=== PATIENT | female | born 1945 | race Caucasian/White ===

== ENCOUNTER 2022-05-06 17:15 | Inpatient (IN) | payer OTHER ==
[~2022-05-06] VITALS: Ht 162.6 cm; Wt 73.5 kg
[2022-05-06 17:15] VITALS: BP_SYST 116
--- NOTE | 2022-05-06 17:15 | NUR ---
BROUGHT IN BY [facility], TRIAGED. REPORT GIVEN TO ALEXANDRA
--- NOTE | 2022-05-06 17:25 | NUR ---
PT BIBA FROM HOME C/O LOWER RIGHT LEG/KNEE PAIN. PT REPORTS HER LEGS HAVE BEEN SWOLLEN FOR ABOUT A YEAR. RECENTLY THEY BEGAN TO WEEP AND REDNESS TO RIGHT ANKLE. PT STATES SHE WAS HOSPITALIZED EARLIER THIS YEAR AT [facility] "THEY DIDN'T DO ANYTHING AND I DON'T KNOW WHAT'S WRONG WITH ME, I THINK I HAVE KIDNEY PROBLEMS". STATES SHE HAS BEEN IN A RECLINER CHAIR AT HOME SINCE SHE CAN NO LONGER WALK. PT IS AAOX4, VSS
--- NOTE | 2022-05-06 18:15 | NUR ---
ER DR. KOEHLER EXAMINING PT
--- NOTE | 2022-05-06 18:49 | NUR ---
# 22 gauge angiocath placed to RFA. Use of asceptic technique. Opsite placed over site. Blood return noted. Flushed with 10 cc of normal saline. No evidence of infiltration noted. Patient tolerated well.
--- NOTE | 2022-05-06 18:52 | NUR ---
PT'S AT THE BEDSIDE
--- NOTE | 2022-05-06 18:53 | NUR ---
LAB AT THE BEDSIDE FOR BLOOD DRAW
--- NOTE | 2022-05-06 19:04 | NUR ---
PORTABLE XRAY AT THE BEDSIDE
--- NOTE | 2022-05-06 19:14 | NUR ---
REPORT GIVEN TO JENAE WARD FOR CONTINUING CARE
--- NOTE | 2022-05-06 19:15 | NUR ---
ASSUME CARE OF PT BY ED EMANUEL, REPORT GIVEN BY JETHRO EMANUEL, PT BIBA FOR RIGHT LEG/KNEE PAIN, PT HAS HAD MULTIPLE FALLS DUE TO SWELLING AND PAIN BILAERAL LEGS. PT STATES BILATERAL LOWER LEG SWELLING X 1 YR. LEFT LOWER LEG REDNESS. AT BEDSIDE.
[2022-05-06 19:18] LABS: BASOPHILS # (AUTO) 0.1 K/uL (0.0-0.2); BASOPHILS % (AUTO) 0.9 % (0.0-2.0); EOSINOPHILS # (AUTO) 0.1 K/uL (0.0-0.4); EOSINOPHILS % (AUTO) 0.6 % (0.0-4.0); HEMATOCRIT 24.4 % (36-48); HEMOGLOBIN 7.9 g/dL (12.0-16.0); LYMPHOCYTES # (AUTO) 1.8 K/uL (1.0-5.5); LYMPHOCYTES % (AUTO) 18.8 % (20.5-51.5); MEAN CORPUSCULAR HEMOGLOBIN 22 pg (27-31); MEAN CORPUSCULAR HGB CONC 32 % (32-36); MEAN CORPUSCULAR VOLUME 68 fL (79.0-98.0); MONOCYTES # (AUTO) 1.1 K/uL (0.0-1.0); MONOCYTES % (AUTO) 11.6 % (1.7-9.3); NEUTROPHILS # (AUTO) 6.7 K/uL (1.8-7.7); NEUTROPHILS % (AUTO) 68.1 % (40.0-70.0); PLATELET COUNT (AUTO) 294 K/uL (130-430); RED CELL DISTRIBUTION WIDTH 21.2 % (9.0-15.0); WHITE BLOOD COUNT (AUTO) 9.8 K/uL (4.8-10.8)
[2022-05-06 19:34] LABS: ANION GAP 9 (5-15); CHLORIDE 103 mmol/L (98-107); CREATININE 1.78 mg/dL (0.55-1.30); GLUCOSE 174 mg/dL (70-99); UREA NITROGEN, BLOOD 47 mg/dL (8-21)
[2022-05-06 19:38] LABS: INR 1.4 (0.8-1.2); PROTHROMBIN TIME 14.2 SECS (9.5-12.5)
[2022-05-06 19:43] LABS: ALANINE AMINOTRANSFERASE 6 U/L (12-78); ALBUMIN 1.4 g/dL (3.4-4.8); ASPARTATE AMINOTRANSFERASE 15 U/L (10-37); TOTAL BILIRUBIN 0.3 mg/dL (0.0-1.0)
[2022-05-06] MEDS ORDERED: FUROSEMIDE 40 MG/4 ML VIAL IVP ONE (20:00)
[2022-05-06] MEDS ORDERED: CEFAZOLIN 1 GM IVPB PREMIX 50 ML IV ONE (20:00)
--- NOTE | 2022-05-06 20:40 | NUR ---
Admit bed requested Patient will be admitted to care of . Admitted to TELE unit. Diagnosis CHF Inpatient (Yes or No) YES Observation (Yes or No) NO Orientation concerns or request close to nursing station (Yes or No) NO Covid Status PENDING On vent or bipap NO Isolation requirements NO Needs a sitter NO From Home (Yes or if No enter name of facility) YES Requires Dialysis (Yes or No) NO Med Rec Completed (Yes of No) PENDING
--- NOTE | 2022-05-06 21:38 | NUR ---
# 16 FR Palmer catheter with use of sterile technique. Immediate return of cc urine noted. Bedside drainage bag placed below level of bladder. Urine sample collected and sent to lab. Pt tolerated procedure . Patient unable to toilet self.
[2022-05-06 22:04] LABS: BILIRUBIN,URINE NEGATIVE (NEGATIVE); BLOOD, URINE 2+ (NEGATIVE); CLARITY/URINE TURBID (CLEAR); COLOR,URINE YELLOW (YELLOW); GLUCOSE,URINE NEGATIVE (NEGATIVE); KETONES,URINE NEGATIVE (NEGATIVE); LEUKOCYTE ESTERASE ,URINE 3+ (NEGATIVE); NITRITE, URINE NEGATIVE (NEGATIVE); PROTEIN URINE 1+ (NEGATIVE); UROBILINOGEN,URINE 0.2 (0.2-1.0)
[2022-05-06 22:34] LABS: BACTERIA,URINE FEW /HPF (None Seen); WBC,URINE >100 /HPF (0-3)
[2022-05-06 22:35] LABS: MUCUS,URINE None Seen /LPF (None Seen)
[2022-05-06 23:45] VITALS: BP_SYST 112
--- NOTE | 2022-05-06 23:51 | NUR ---
Patient will be admitted to care of Ana EMANUEL. Admitted to Tele unit. Will go to room . Belongings list completed. Complete and up to date summary report printed. SBAR report to be given at bedside with opportunity for questions.
[2022-05-07] MEDS ORDERED: HYDROcodone/ACETAMIN 5-325 MG TAB (NORCO/ VICODIN) PO PRN (04:45)
[2022-05-07] MEDS ORDERED: ACETAMINOPHEN 325 MG TABLET PO PRN (04:45)
--- NOTE | 2022-05-07 04:45 | NUR ---
PAIN PATIENT C/O PAIN TO HER LOWER EXTREMITIES, PAGED AND TALKED TO SHAY BUCHANAN WITH NEW ORDERS. WILL CONTINUE TO MONITOR.
[2022-05-07] MEDS: HYDROcodone/ACETAMIN 5-325 MG TAB (NORCO/ VICODIN) PO PRN ×2 (05:04→17:38)
[2022-05-07] MEDS ORDERED: VITD2000 PO (06:18)
[2022-05-07] MEDS ORDERED: MAGN400T10 PO (06:18)
[2022-05-07] MEDS ORDERED: APIX5TAB4 PO (06:18)
[2022-05-07] MEDS ORDERED: SENN-295 PO (06:18)
[2022-05-07] MEDS ORDERED: GLIM4TAB PO (06:18)
[2022-05-07] MEDS ORDERED: OMEP20CA15 PO (06:18)
[2022-05-07] MEDS ORDERED: SITA100T11 PO (06:18)
[2022-05-07] MEDS ORDERED: TROS20TA2 PO (06:18)
[2022-05-07] MEDS ORDERED: METO50TA7 PO (06:18)
[2022-05-07] MEDS ORDERED: FERR236T3 PO (06:18)
[2022-05-07] MEDS ORDERED: FURO-150 PO (06:18)
[2022-05-07] MEDS ORDERED: LOSA100T3 PO (06:18)
[2022-05-07] MEDS: FUROSEMIDE 40 MG/4 ML VIAL IVP SCH ×2 (10:50→21:04)
[2022-05-07 12:00] VITALS: BP_SYST 140
[2022-05-07] MEDS ORDERED: MAGNESIUM OXIDE 400 MG TABLET PO SCH (15:00)
[2022-05-07] MEDS ORDERED: PANTOPRAZOLE SODIUM 40 MG TAB PO ONE (15:30)
[2022-05-07] MEDS ORDERED: CHOLECALCIFEROL (VITAMIN D3) 5,000 UNIT TABLET PO ONE (15:30)
[2022-05-07] MEDS ORDERED: GLIMEPIRIDE 2 MG TABLET PO ONE (15:45)
[2022-05-07] MEDS ORDERED: METOPROLOL TARTRATE 50 MG TABLET PO ONE (15:45)
[2022-05-07] MEDS ORDERED: SENNOSIDES/DOCUSATE SODIUM 1 TAB TABLET(SENOKOT-S) PO ONE (15:45)
[2022-05-07] MEDS ORDERED: LOSARTAN POTASSIUM 50 MG TABLET (COZAAR) PO ONE (15:45)
[2022-05-07] MEDS: INSULIN REGULAR, HUMAN 100 UNITS/ML, 10 ML VIAL (humuLIN R) SUBCUT PRN (15:54)
[2022-05-07 16:00] VITALS: BP_SYST 128
--- NOTE | 2022-05-07 19:30 | NUR ---
OPENING NOTES Received report from day nurse. Pt body leaning to left, refused to be moved. Pt reports no pain or discomfort. Pt sent to find nurse to request evening meds despite refusing medications earlier. Pt is agitated and has negative response to everything. LFA IV is patent SL. Palmer secured and bag nearly empty. Bed at lowest position, call light in hand, at bedside.
[2022-05-07 20:00] VITALS: BP_SYST 117
--- NOTE | 2022-05-07 20:15 | NUR ---
0730 assumed care of patient, call light in reach, side rails up, vss, afebrile, denies any pain sinus tach on monitor. assessment completed 0745 patient refused care of lotion to lower extremities. 0800 c/o not believing that she is sick, states that he ignores her and does not care for her. states that her daughter is a division commander and that she is the one that cares for her. 1015 patient at bedside, patient agitated. wants to see her MD. 1230 paged md, not available now is being covered by another md. notified patient that md was paged. will continue to follow up. charge nurse updated 1530 received new orders to resume home meds. notified patient. when meds were available patient refused meds.charge nurse aware. 1745husband back at bedside states patient will take her meds at 1800 1815 nurse took meds to patient and patient refused. was no longer at bedside 1930 report given to ulisses brown
[2022-05-07] MEDS: SENNOSIDES/DOCUSATE SODIUM 1 TAB TABLET(SENOKOT-S) PO SCH (21:00)
[2022-05-07] MEDS: METOPROLOL TARTRATE 50 MG TABLET PO SCH (21:01)
[2022-05-07] MEDS: GLIMEPIRIDE 2 MG TABLET PO SCH (21:03)
[2022-05-08] VITALS: BP_SYST 109
--- NOTE | 2022-05-08 07:05 | NUR ---
Closing Notes During shift change, pt was screaming loudly for help. Pt was safely in bed with left bed rails up and pillow between head and rail. Pt recognized me and asked me to wake her up recognizing she was dreaming. Pt fluctuated between reality and fearful screams, wanting her . I assisted the pt to call her who stated he was on his way arriving 25 minutes later. Pt had shifted to the left but tightened body and held on to rail making it impossible to center her body. Pt was fearful and panicked when I had to leave to give report. Decided to stay bedside with patient, day nurse received report at bedside. at bedside, pt left in nurses care eating breakfast.
[2022-05-08] MEDS: INSULIN REGULAR, HUMAN 100 UNITS/ML, 10 ML VIAL (humuLIN R) SUBCUT PRN ×3 (07:47→16:28)
[2022-05-08 08:02] VITALS: BP_SYST 140
--- NOTE | 2022-05-08 08:04 | NUR ---
Report received from JENAE Pitts for continuity of care. No distress noted. Patient in stable condition.
[2022-05-08] MEDS: PANTOPRAZOLE SODIUM 40 MG TAB PO SCH (08:43)
[2022-05-08] MEDS: GLIMEPIRIDE 2 MG TABLET PO SCH ×2 (08:43→22:55)
[2022-05-08] MEDS: LOSARTAN POTASSIUM 50 MG TABLET (COZAAR) PO SCH (08:44)
[2022-05-08] MEDS: SENNOSIDES/DOCUSATE SODIUM 1 TAB TABLET(SENOKOT-S) PO SCH ×2 (08:44→22:56)
[2022-05-08] MEDS: CHOLECALCIFEROL (VITAMIN D3) 5,000 UNIT TABLET PO SCH (08:44)
[2022-05-08] MEDS: METOPROLOL TARTRATE 50 MG TABLET PO SCH ×2 (08:45→22:56)
[2022-05-08] MEDS: FUROSEMIDE 40 MG/4 ML VIAL IVP SCH ×2 (08:46→22:54)
[2022-05-08] MEDS: HYDROcodone/ACETAMIN 5-325 MG TAB (NORCO/ VICODIN) PO PRN (10:17)
[2022-05-08 12:00] VITALS: BP_SYST 130
[2022-05-08] MEDS: cefTRIAXone 1 GM IVPB PREMIX 50 ML IV SCH (12:08)
--- NOTE | 2022-05-08 14:13 | NUR ---
Dietitian Recommendations * Continue cardiac diet as ordered * Consider multivitamin with minerals * Support gradual weight loss--declined nutrition information today, RD to f/u Please refer to nutrition assessment for details. PS, RD
[2022-05-08] MEDS: GABAPENTIN 100 MG CAPSULE PO SCH ×2 (14:26→22:56)
--- NOTE | 2022-05-08 14:28 | NUR ---
WOUND EVALUATION: Late note for 142 secondary to patient care. Wound Consult received from Dr. Coyne. Thank you, Dr. Coyne, for the consult. Patient received in a [place] Bed, awake, alert, and oriented. Patient is unable to turn in bed independently secondary to pain. Brandin Score is an 11. Past Medical History: CKD, Chronic Peripheral Edema, Cholecystectomy, liver issues. Recent Labs: WBC 9.8, RBC 3.60, hemoglobin 7.9, hematocrit 24.4, sodium 131, BUN 47, creatinine 1.78, glucose 174, POC glucose 196, calcium 8.0, ALT 6, albumin 1.4, PT 14.2, INR 1.4, PTT 37.2, D-dimer 1740. Microbiology: Blood culture results x2 in progress. Urine culture results in progress. Venous Doppler results negative for DVT. Intrinsic factors that delay wound healing: CKD, Chronic Peripheral Edema, severe Hypoalbuminemia. Extrinsic factors that delay wound healing: Decreased mobility. Patient stated that she has had compression stockings in the past for treatment, but she does not like to wear them for long periods. Wound Assessment: 1. Left Lower Extremity: Extremity has gross nonpitting edema with dry scaly skin (suspect venous insufficiency), present on admission. Area near the ankle has a small band of erythema around the partial circumference of the leg. No odor, small serous drainage with yellow tint. 2. Right Lower Extremity: Extremity has gross nonpitting edema with dry scaly skin(suspect venous insufficiency), present on admission. Area near the ankle has a small band of erythema around the partial circumference of the leg. No odor, small serous drainage with yellow tint. Recommend: Cleanse extremities with mild soap and water. Gently pat dry. Apply Eucerin cream dry scaly skin areas wrap extremities with Lillian wrap. Wrap extremities with elastic bandage starting just above toes and ending just below knee, using 50% overlap with a short full stretch underneath the calf area. Perform site care daily, and as needed for dressing soiling or dislodgement. Elevate extremities as much as tolerated. Encourage 10-20 ankle pumps every hour. Also recommend: Encourage and assist patient as needed with repositioning every 2 hours with pillow support and off-load pressure areas with pillows for pressure re-distribution. Offload, elevate and float bilateral heels with 1 pillow lengthwise in each extremity when not elevated. Perform skin care and monitor skin integrity Q shift. Use moisture barrier cream on buttocks and other moisture susceptible areas QID and as needed for soiling. Place patient on a low air-loss mattress.
[2022-05-08] MEDS: EMOLLIENT COMBINATION NO.73 78 GM CREAM..G. TP SCH (15:46)
[2022-05-08 16:28] VITALS: BP_SYST 135
[2022-05-08] MEDS ORDERED: LORazepam 2 MG/ML VIAL IVP ONE (17:45)
[2022-05-08 17:49] VITALS: BP_SYST 136
--- NOTE | 2022-05-08 19:30 | NUR ---
OPENING NOTES Received report from day nurse. Pt laying in bed with eyes closed, at bedside. Pt awoke complaining about need to be moved and adjusted but every suggestion was refused and pt becoming agitated. Before leaving room, made sure safety and fall measures in place.
[2022-05-08 20:00] VITALS: BP_SYST 117
[2022-05-09] VITALS: BP_SYST 109
--- NOTE | 2022-05-09 06:30 | NUR ---
INFORMED JENAE SUH THAT THE PATIENT'S TELE BOX BATTERY IS NEEDS TO BE REPLACED BEEN OFF THE MONITOR FOR ONE HOUR
--- NOTE | 2022-05-09 07:00 | NUR ---
Report received from senior talent management consultant RN for continuity of care. Patient in stable condition. No distress noted.
--- NOTE | 2022-05-09 07:00 | NUR ---
CLOSING NOTES Patient slept well throughout the night, remained at bedside. Pt was NPO after midnight to prepare for MRI in the morning. Consent survey and forms were prepared but pt wanted to wait until morning to sign. Pt decided to have sign instead. Pt shows no signs of discomfort or pain. Will give report to day nurse.
[2022-05-09 07:06] LABS: FOLATE (FOLIC ACID) 8.4 ng/mL (>3.0)
[2022-05-09 08:00] VITALS: BP_SYST 114
[2022-05-09 09:25] LABS: TOTAL IRON BIND. CAPACITY 135 ug/dL (250-450)
[2022-05-09] MEDS: FUROSEMIDE 40 MG/4 ML VIAL IVP SCH ×2 (10:02→20:47)
[2022-05-09] MEDS: CHOLECALCIFEROL (VITAMIN D3) 5,000 UNIT TABLET PO SCH (10:02)
[2022-05-09] MEDS: GLIMEPIRIDE 2 MG TABLET PO SCH ×2 (10:02→20:50)
[2022-05-09] MEDS: SENNOSIDES/DOCUSATE SODIUM 1 TAB TABLET(SENOKOT-S) PO SCH ×2 (10:02→20:49)
[2022-05-09] MEDS: LOSARTAN POTASSIUM 50 MG TABLET (COZAAR) PO SCH (10:03)
[2022-05-09] MEDS: GABAPENTIN 100 MG CAPSULE PO SCH ×3 (10:03→20:50)
[2022-05-09] MEDS: MAGNESIUM OXIDE 400 MG TABLET PO SCH ×2 (10:03→20:50)
[2022-05-09] MEDS: PANTOPRAZOLE SODIUM 40 MG TAB PO SCH (10:04)
[2022-05-09] MEDS: METOPROLOL TARTRATE 50 MG TABLET PO SCH ×2 (10:04→20:48)
[2022-05-09] MEDS: EMOLLIENT COMBINATION NO.73 78 GM CREAM..G. TP SCH (10:04)
[2022-05-09 12:00] VITALS: BP_SYST 120
[2022-05-09] MEDS: INSULIN REGULAR, HUMAN 100 UNITS/ML, 10 ML VIAL (humuLIN R) SUBCUT PRN ×3 (13:00→20:52)
[2022-05-09] MEDS: cefTRIAXone 1 GM IVPB PREMIX 50 ML IV SCH (13:05)
[2022-05-09 16:00] VITALS: BP_SYST 134
--- NOTE | 2022-05-09 17:35 | NUR ---
Patient moved to room 110 A.
[2022-05-09 20:00] VITALS: BP_SYST 98
--- NOTE | 2022-05-09 21:13 | NUR ---
PAGED DR BRANCH SPOKE TO SHOLA AT [phone]
--- NOTE | 2022-05-09 21:57 | NUR ---
CALLED DR BRANCH/LOW BP MADE AWARE OF LOW BP, HELD LASIX AND LOPRESSOR. ORDERS GIVEN FOR ALBUMIN. WILL CARRY OUT.
[2022-05-09] MEDS ORDERED: ALBUMIN HUMAN 25% 100 ML IV ONE (22:15)
[2022-05-10] VITALS: BP_SYST 112
--- NOTE | 2022-05-10 06:26 | NUR ---
CLOSING NOTE PATIENT IN BED, RESTING. NO S/S OF ACUTE DISTRESS. BREATHING EVEN AND UNLABORED. HOB RAISED. IV SITE IS PATENT, NO SIGNS OF INFILTRATION OR INFECTION NOTED. SKIN WARM AND DRY TO TOUCH. NO SIGNS OF HYPOGLYCEMIA NOTED. ALL NEEDS MET THROUGHOUT SHIFT. FALL, SAFETY PRECAUTIONS MAINTAINED THROUGHOUT SHIFT. WILL CONTINUE TO MONITOR UNTIL PATIENT CARE IS ENDORSED TO ONCOMING DAYSHIFT NURSE.
[2022-05-10 07:48] VITALS: BP_SYST 97
[2022-05-10 08:08] LABS: ANION GAP 11 (5-15); CALCIUM 7.3 mg/dL (8.4-11.0); CHLORIDE 99 mmol/L (98-107); CREATININE 1.46 mg/dL (0.55-1.30); GLUCOSE 126 mg/dL (70-99); POTASSIUM 3.2 mmol/L (3.5-5.1); UREA NITROGEN, BLOOD 48 mg/dL (8-21)
[2022-05-10] MEDS: LOSARTAN POTASSIUM 50 MG TABLET (COZAAR) PO SCH (09:00)
[2022-05-10] MEDS: METOPROLOL TARTRATE 50 MG TABLET PO SCH ×2 (09:00→21:20)
[2022-05-10] MEDS: GLIMEPIRIDE 2 MG TABLET PO SCH ×2 (10:25→21:08)
[2022-05-10] MEDS: FUROSEMIDE 40 MG/4 ML VIAL IVP SCH (10:25)
[2022-05-10] MEDS: PANTOPRAZOLE SODIUM 40 MG TAB PO SCH (10:26)
[2022-05-10] MEDS: CHOLECALCIFEROL (VITAMIN D3) 5,000 UNIT TABLET PO SCH (10:26)
[2022-05-10] MEDS: SENNOSIDES/DOCUSATE SODIUM 1 TAB TABLET(SENOKOT-S) PO SCH ×2 (10:26→21:08)
[2022-05-10] MEDS: GABAPENTIN 100 MG CAPSULE PO SCH ×3 (10:26→21:07)
[2022-05-10] MEDS: EMOLLIENT COMBINATION NO.73 78 GM CREAM..G. TP SCH (10:27)
[2022-05-10] MEDS: MAGNESIUM OXIDE 400 MG TABLET PO SCH ×2 (10:27→21:07)
[2022-05-10] MEDS: cefTRIAXone 1 GM IVPB PREMIX 50 ML IV SCH (11:37)
[2022-05-10] MEDS: INSULIN REGULAR, HUMAN 100 UNITS/ML, 10 ML VIAL (humuLIN R) SUBCUT PRN ×3 (11:40→21:12)
[2022-05-10 12:36] VITALS: BP_SYST 118
[2022-05-10] MEDS ORDERED: CEPH250C PO (13:23)
[2022-05-10] MEDS ORDERED: FURO-149 PO (13:26)
[2022-05-10 16:09] VITALS: BP_SYST 111
--- NOTE | 2022-05-10 16:53 | NUR ---
need complete home health order
--- NOTE | 2022-05-10 19:20 | NUR ---
OPENING NOTE PT IS LYING IN BED WITH EYES CLOSED, BEDSIDE. NO APPARENT SIGNS OF DISTRESS NOTED AT THIS TIME. BED IS LOWEST POSITION WITH FALL AND SAFETY PRECAUTIONS IN PLACE. TINAJERO DRAINING TO GRAVITY. ALL NEEDS MET AT THIS TIME
[2022-05-10 20:00] VITALS: BP_SYST 113
[2022-05-10] MEDS: FUROSEMIDE 40 MG TABLET PO SCH (21:21)
[2022-05-10 22:01] VITALS: BP_SYST 130
[2022-05-11 00:45] VITALS: BP_SYST 121
[2022-05-11 07:00] VITALS: BP_SYST 126
[2022-05-11 08:00] VITALS: BP_SYST 126
--- NOTE | 2022-05-11 08:08 | NUR ---
CLOSING NOTE PT IS LYING IN BED WITH EYES CLOSED, BEDSIDE. NO APPARENT SIGNS OF DISTRESS NOTED AT THIS TIME. BED IS LOWEST POSITION WITH FALL AND SAFETY PRECAUTIONS IN PLACE. TINAJERO DRAINING TO GRAVITY. CARE HANDED OVER TO DAY SHIFT RN
[2022-05-11] MEDS: GLIMEPIRIDE 2 MG TABLET PO SCH (08:36)
[2022-05-11] MEDS: CHOLECALCIFEROL (VITAMIN D3) 5,000 UNIT TABLET PO SCH (08:37)
[2022-05-11] MEDS: GABAPENTIN 100 MG CAPSULE PO SCH ×2 (08:37→14:56)
[2022-05-11] MEDS: SENNOSIDES/DOCUSATE SODIUM 1 TAB TABLET(SENOKOT-S) PO SCH (08:37)
[2022-05-11] MEDS: LOSARTAN POTASSIUM 50 MG TABLET (COZAAR) PO SCH (08:37)
[2022-05-11] MEDS: METOPROLOL TARTRATE 50 MG TABLET PO SCH (08:37)
[2022-05-11] MEDS: MAGNESIUM OXIDE 400 MG TABLET PO SCH (08:37)
[2022-05-11] MEDS: FUROSEMIDE 40 MG TABLET PO SCH (08:37)
[2022-05-11] MEDS: PANTOPRAZOLE SODIUM 40 MG TAB PO SCH (08:37)
[2022-05-11] MEDS: HYDROcodone/ACETAMIN 5-325 MG TAB (NORCO/ VICODIN) PO PRN (08:38)
[2022-05-11] MEDS: EMOLLIENT COMBINATION NO.73 78 GM CREAM..G. TP SCH (09:00)
[2022-05-11 11:39] VITALS: BP_SYST 106
[2022-05-11] MEDS: INSULIN REGULAR, HUMAN 100 UNITS/ML, 10 ML VIAL (humuLIN R) SUBCUT PRN ×2 (12:29→18:48)
[2022-05-11] MEDS: cefTRIAXone 1 GM IVPB PREMIX 50 ML IV SCH (14:49)
[2022-05-11 16:24] VITALS: BP_SYST 110
--- NOTE | 2022-05-11 16:24 | NUR ---
Discharge appointments and vendors arranged by [facility] [employer] Director Deidre Meadejosh [phone] [facility] will call with date and time [phone] auth# [id number] Home health wound care eval coccyx/sacrum/feet Agency will call and schedule visit. Please call Patient Support Center [phone] for worsening symptoms or trouble getting your medicine. For care needs when provider office is closed, contact Vania [facility] at [phone] or Anatoliy [facility] [phone].
--- NOTE | 2022-05-11 16:30 | NUR ---
patient discharging home via ambulance medic 1 ambulance berry picker : 19:00 [phone] trk# [id number] called the floor x 4, got transfer wrong nurse then on hold and disconnected x 3 called LINDA Hernandez, provided ambulance transfer time she will provide information to nurse
[2022-05-11 16:57] VITALS: BP_SYST 126
--- NOTE | 2022-05-11 22:47 | NUR ---
pateint discharged home per MD order. Ambulance picked her to home
--- NOTE | 2022-05-22 15:32 | NUR ---
Floor Tech RIDES ATTENDANT made a Post Dirscharge Follow-Up Phone Call to former pt.., Audrey who stated she was at [facility] at the moment. Audrey stated soon after her discharge form REPLACED BY [facility], [facility] stated [facility] was set up, but Audrey did not have a chance to received services in her home because she was re-hospitalized. RIDES ATTENDANT expressed empathy and did not keep her on the phone.
== END 2022-05-11 23:15 | disposition home health service (06) | DRG 602 ==
LOC: SED 17:15 → STU 20:32
PROVIDERS: ADMIT Specialist; ATTEND Specialist
DX: L03.90 Cellulitis, unspecified (principal); E41 Nutritional marasmus; N17.0 Acute kidney failure with tubular necrosis; I50.41 Acute combined systolic (congestive) and diastolic (congestive) heart failure; E44.0 Moderate protein-calorie malnutrition; I11.0 Hypertensive heart disease with heart failure; Z20.822 Contact with and (suspected) exposure to COVID-19; I48.91 Unspecified atrial fibrillation; I73.9 Peripheral vascular disease, unspecified; Z90.49 Acquired absence of other specified parts of digestive tract; Z79.899 Other long term (current) drug therapy; Z79.01 Long term (current) use of anticoagulants; Z95.0 Presence of cardiac pacemaker
CPT/HCPCS: 36415; 71045; 72100-TC; 72131; 76376; 80048; 80053; 81000; 82550; 82607; 82746; 82962; 83540; 83550; 83605; 83880; 84484; 85025; 85379; 85610-TC; 85730-TC; 87040; 87086; 93005; 93970; 96374; 96375; 97110-GP; 99285; G0378; J0690; J0696; J1815; J1940